=== PATIENT | female | born 1990 | race Two or more races ===

== ENCOUNTER 2021-12-14 22:19 | Emergency (ER) | payer SELFPAY | END 2021-12-15 01:26 | disposition left against medical advice (07) | LOC: ER 22:19 | DX: O46.91 Antepartum hemorrhage, unspecified, first trimester (principal); Z53.21 Procedure and treatment not carried out due to patient leaving prior to being seen by health care provider ==

== ENCOUNTER 2022-04-17 01:27 | Emergency (ER) | payer OTHER ==
[~2022-04-17] VITALS: Ht 160 cm; Wt 71.3 kg
[2022-04-17] MEDS ORDERED: fentaNYL PF VIAL 100 MCG/2 ML VIAL IVP ONE (02:00)
[2022-04-17 02:03] LABS: BASO # 0.1 x10^3/uL (0.0-0.2); BASO % 1 % (0-3); EOS # 0.4 x10^3/uL (0.0-0.7); EOS % 4 % (0-3); HEMATOCRIT 36.8 % (36.0-47.0); HEMOGLOBIN 12.7 g/dL (12.0-15.5); LYMPH # 1.3 x10^3/uL (1.0-4.8); LYMPH % 13 % (24-48); MEAN CORPUSCULAR HEMOGLOBIN 32 pg (25-35); MEAN CORPUSCULAR HGB CONC 34 g/dL (31-37); MEAN CORPUSCULAR VOLUME 94 fL (79-100); MONO # 0.5 x10^3/uL (0.0-1.1); MONO % 5 % (0-9); NEUT # 7.5 x10^3/uL (1.8-7.7); NEUT % 77 % (31-73); PLATELET COUNT 188 x10^3/uL (140-400); RED BLOOD COUNT 3.92 x10^6/uL (3.50-5.40); RED CELL DISTRIBUTION WIDTH 13.6 % (11.5-14.5); WHITE BLOOD COUNT 9.8 x10^3/uL (4.0-11.0)
[2022-04-17 02:11] LABS: CALCIUM 8.7 mg/dL (8.5-10.1); CREATININE 0.7 mg/dL (0.6-1.0); GFR 97.6; POTASSIUM 3.6 mmol/L (3.5-5.1)
[2022-04-17 02:14] LABS: BACTERIA,URINE MODERATE /HPF (0-FEW); RBC,URINE >40 /HPF (0-2)
[2022-04-17 02:27] LABS: PROTHROMBIN TIME PATIENT 13.6 SEC (11.7-14.0)
--- NOTE | 2022-04-17 02:38 | RAD ---
OB ultrasound less than 14 weeks HISTORY: Vaginal bleeding Sonographic examination of the pelvis was performed by transabdominal technique. Multiple static imag es were obtained. COMPARISON: March 07, 2022 There is a single live material. 2 the heart is confirmed at 1 53 bpm. Visualization of structu res is limited at this early gestational age. The crown-rump length of 6.15 cm corresponds with a 12 week 4 day gestational age and estimated date of confinement of October 26, 2022. The LMP of 01/22/2022 corresponds to 12 week 1 day gestational age is predicted, October 29, 2022. The amniotic fluid volume appears normal. There is an anterior placenta which appears normal. Previously seen subchorionic hemorrhage is not visualized. IMPRESSION: 1. Single live intrauterine . Size by ultrasound is within one standard deviation of clinica l age. 2. No suspicious findings. A short-term follow-up study could be performed if clinically indicated otherwise a structural survey would be performed at 18 to 20 weeks gestational age. Electronically signed by: John See III, MD (04/17/2022 2:35 AM) [facility]
--- NOTE | 2022-04-17 03:20 | PHYS DOC ---
Past Medical History Past Surgical History: No Surgical History Smoking Status: Never Smoker Alcohol Use: None General Adult EDM: Chief Complaint: VAGINAL BLEEDING HPI: HPI: Patient is a 31 year old G6, P5 female who currently is about 12 weeks and presents to the emergency department today with complaints of abdominal cr amping and vaginal bleeding. Patient states that she was in the bed tonight when she had sudden onset of lower abdominal cramping. She states that she had some bleeding as well as passed a large clot. She states given this she presented to the emergency department for evaluation. She denies having any chest pain, shortness of breath, syncope or near syncope. She states she has not had pain or bleeding with any prior pregnancies. She has seen her [employer]IST Dr. Polk. Review of Systems: Review of Systems: Constitutional: Denies fever or chills. [] Eyes: Denies change in visual acuity. [] HENT: Denies nasal congestion or sore throat. [] Respiratory: Denies cough or shortness of breath. [] Cardiovascular: Denies chest pain or edema. [] GI: Denies nausea, vomiting, bloody stools or diarrhea. [] : Denies dysuria. [] Musculoskeletal: Denies back pain or joint pain. [] Integument: Denies rash. [] Neurologic: Denies headache, focal weakness or sensory changes. [] Endocrine: Denies polyuria or polydipsia. [] Lymphatic: Denies swollen glands. [] Psychiatric: Denies depression or anxiety. [] Heart Score: C/O Chest Pain: No Family History: Family History: Noncontributory Current Medications: Current Medications Medications (Trade) Dose Ordered Sig/Maria Del Rosario Start Time Stop Time Status Last Admin Dose Admin Fentanyl Citrate (Fentanyl 2ml Vial) 50 mcg 1X ONCE 04/17/22 02:00 04/17/22 02:01 DC 04/17/22 02:02 50 MCG Allergies: Allergies: Allergies Coded Allergies Type Severity Reaction Last Updated Verified No Known Allergies Allergy Unknown 04/17/22 Yes Physical Exam: PE: Constitutional: Well developed, well nourished, no acute distress, non-toxic appearance. [] HENT: Normocephalic, atraumatic, bilateral external ears normal, oropharynx moist, no oral exudates, nose normal. [] Eyes: PERRLA, EOMI, conjunctiva normal, no discharge. [] Neck: Normal range of motion, no tenderness, supple, no stridor. [] Cardiovascular:Heart rate regular rhythm, no murmur [] Lungs & Thorax: Bilateral breath sounds clear to auscultation [] Abdomen: Bowel sounds normal, soft, no tenderness, no masses, no pulsatile masses. Pelvic: Cervical os is closed. There is a small amount of old blood at the os. [] Skin: Warm, dry, no erythema, no rash. [] Back: No tenderness, no CVA tenderness. [] Extremities: No tenderness, no cyanosis, no clubbing, ROM intact, no edema. [] Neurologic: Alert and oriented X 3, normal motor function, normal sensory function, no focal deficits noted. [] Psychologic: Affect normal, judgement normal, mood normal. [] Current Patient Data: Labs: Laboratory Tests Test 04/17/22 01:36 04/17/22 01:44 04/17/22 02:00 Urine Collection Type Unknown Urine Color (Auto) Colorless Urine Turbidity Clear Urine pH (Auto) 6.5 (<5.0-8.0) Urine Specific [place] 1.010 (1.000-1.030) Urine Protein (Auto) Negative mg/dL (Negative) Urine Glucose (Auto)(UA) Negative mg/dL (Negative) Urine Ketones (Auto) Negative mg/dL (Negative) Urine Blood (Auto) Large (Negative) Urine Nitrite Negative (Negative) Urine Bilirubin (Auto) Negative (Negative) Urine Urobilinogen (Auto) Normal mg/dL (Normal) Urine Leukocyte Esterase (Auto) Negative (Negative) Urine RBC >40 /HPF (0-2) Urine WBC 1-4 /HPF (0-4) Urine Squamous Epithelial Cells Mod /LPF Urine Bacteria Moderate /HPF (0-FEW) Urine Mucus Slight /LPF White Blood Count 9.8 x10^3/uL (4.0-11.0) Red Blood Count 3.92 x10^6/uL (3.50-5.40) Hemoglobin 12.7 g/dL (12.0-15.5) Hematocrit 36.8 % (36.0-47.0) Mean Corpuscular Volume 94 fL (79-100) Mean Corpuscular Hemoglobin 32 pg (25-35) Mean Corpuscular Hemoglobin Concent 34 g/dL (31-37) Red Cell Distribution Width 13.6 % (11.5-14.5) Platelet Count 188 x10^3/uL (140-400) Neutrophils (%) (Auto) 77 % (31-73) H Lymphocytes (%) (Auto) 13 % (24-48) L Monocytes (%) (Auto) 5 % (0-9) Eosinophils (%) (Auto) 4 % (0-3) H Basophils (%) (Auto) 1 % (0-3) Neutrophils # (Auto) 7.5 x10^3/uL (1.8-7.7) Lymphocytes # (Auto) 1.3 x10^3/uL (1.0-4.8) Monocytes # (Auto) 0.5 x10^3/uL (0.0-1.1) Eosinophils # (Auto) 0.4 x10^3/uL (0.0-0.7) Basophils # (Auto) 0.1 x10^3/uL (0.0-0.2) Maternal Serum HCG Beta Subunit 58356 mIU/mL (0-5) H Sodium Level 139 mmol/L (136-145) Potassium Level 3.6 mmol/L (3.5-5.1) Chloride Level 108 mmol/L (98-107) H Carbon Dioxide Level 20 mmol/L (21-32) L Anion Gap 11 (6-14) Blood Urea Nitrogen 12 mg/dL (7-20) Creatinine 0.7 mg/dL (0.6-1.0) Estimated GFR (Cockcroft-Gault) 97.6 Glucose Level 102 mg/dL (70-99) H Calcium Level 8.7 mg/dL (8.5-10.1) Prothrombin Time 13.6 SEC (11.7-14.0) Prothrombin Time INR 1.1 (0.8-1.1) Activated Partial Thromboplast Time 26 SEC (24-38) Laboratory Tests 04/17/22 01:44 Laboratory Tests 04/17/22 01:44 Vital Signs: Vital Signs Date Time Temp Pulse Resp B/P (MAP) Pulse Ox O2 Delivery O2 Flow Rate FiO2 04/17/22 03:00 78 18 95/58 (70) 98 04/17/22 01:33 98.4 Room Air 98.4 EKG: EKG: [] Radiology/Procedures: Radiology/Procedures: OB ultrasound less than 14 weeks HISTORY: Vaginal bleeding Sonographic examination of the pelvis was performed by transabdominal technique. Multiple static images were obtained. COMPARISON: March 07, 2022 There is a single live material. 2 the heart is confirmed at 1 53 bpm. Visualization of structures is limited at this early gestational age. The crown-rump length of 6.15 cm corresponds with a 12 week 4 day gestational age and estimated date of confinement of October 26, 2022. The LMP of 01/22/2022 corresponds to 12 week 1 day gestational age is predicted, October 29, 2022. The amniotic fluid volume appears normal. There is an anterior placenta which appears normal. Previously seen subchorionic hemorrhage is not visualized. IMPRESSION: 1. Single live intrauterine . Size by ultrasound is within one standard deviation of clinical age. 2. No suspicious findings. A short-term follow-up study could be performed if clinically indicated otherwise a structural survey would be performed at 18 to 20 weeks gestational age. Electronically signed by: John See III, MD (04/17/2022 2:35 AM) [facility] Impression: Threatened AB Course & Med Decision Making: Course & Med Decision Making Patient remained hemodynamically stable in the emergency department. She was evaluated at the bedside physical exam. Basic labs obtained and are unremarkable. OB ultrasound shows a live intrauterine . On pelvic exam the os is closed. Patient's pain was treated with 50 mcg of fentanyl. On reassessment she is feeling better. We will discharge her home and have her follow-up with her OB on Monday. Juliana Disclaimer: Juliana Disclaimer: This electronic medical record was generated, in whole or in part, using a voice recognition dictation system. Departure Departure Impression: Primary Impression: Threatened miscarriage in early Disposition: HOME / SELF CARE / HOMELESS Condition: IMPROVED Referrals: NO PCP (PCP) Please follow up with your Marketing Finance Specialist on Monday. KRYSTA KING MD April 17, 2022 03:20
[2022-04-17 03:53] VITALS: BP 96/59
== END 2022-04-17 03:56 | disposition home or self-care (01) ==
LOC: ER 01:27
DX: O20.0 Threatened abortion (principal); Z3A.12 12 weeks gestation of pregnancy
CPT/HCPCS: 36415; 76801; 80048; 81001; 84702; 85025; 85610; 85730; 86850; 86900; 86901; 87086; 96374; 99284; J3010